=== PATIENT | female | born 1970 | race African-American/Black ===

== ENCOUNTER 2018-05-22 05:17 | Inpatient (IN) | payer MEDICAID ==
[~2018-05-22] VITALS: Ht 162.6 cm; Wt 112.5 kg
[2018-05-22 06:52] LABS: CHLORIDE 109 mEq/L (98-107)
[2018-05-22] MEDS ORDERED: FENTANYL CITRATE/PF 50MCG/ML 2ML VIAL ONE (07:09)
[2018-05-22] MEDS ORDERED: GLYCOPYRROLATE 0.2 MG/ML 2ML VIAL ONE ×2 (07:10→08:53)
[2018-05-22] MEDS ORDERED: PROPOFOL 200MG/20ML VIAL IV ONE ×2 (07:10→07:26)
[2018-05-22] MEDS ORDERED: NEOSTIGMINE METHYLSULFATE 1MG/ML 10 ML VIAL ONE (07:10)
[2018-05-22] MEDS ORDERED: ROCURONIUM BROMIDE 10MG/ML VIAL 5ML IV ONE (07:10)
[2018-05-22] MEDS ORDERED: MIDAZOLAM HCL 2 MG/2 ML VIAL ONE (07:10)
[2018-05-22] MEDS ORDERED: MORPHINE SULFATE 2 MG/ML CPJ (NOT FOR IM USE) IV PRN (07:15)
[2018-05-22] MEDS ORDERED: ONDANSETRON HCL 4MG/2ML INJ IV PRN ×2 (07:15→08:00)
[2018-05-22] MEDS ORDERED: CLONIDINE 0.1MG TABLET PO PRN (07:15)
[2018-05-22] MEDS ORDERED: DEXAMETHASONE 4MG/ML 1ML VIAL ONE ×2 (07:26→07:50)
[2018-05-22] MEDS ORDERED: HYDROMORPHONE HCL/PF 2MG/ML (OR) ONE (07:50)
[2018-05-22] MEDS ORDERED: MEPERIDINE HCL/PF 25MG/ML CPJ IV PRN (08:00)
[2018-05-22] MEDS ORDERED: LABETALOL HCL 5MG/ML VIAL 20ML IV PRN (08:00)
[2018-05-22] MEDS ORDERED: TOPI50TA PO (09:17)
[2018-05-22] MEDS ORDERED: PROP10TA10 PO (09:17)
[2018-05-22] MEDS ORDERED: TOP100 PO (09:17)
[2018-05-22] MEDS ORDERED: CHLO25TA2 PO (09:17)
[2018-05-22] MEDS ORDERED: ONDANSETRON INJ IV PRN (10:00)
[2018-05-22] MEDS ORDERED: MORPHINE PCA 50MG/50ML IV PRN (10:00)
[2018-05-22] MEDS: HYDROMORPHONE HCL/PF 2MG/ML CPJ IV PRN ×2 (10:00→10:08)
[2018-05-22] MEDS ORDERED: NALOXONE INJ IV PRN (10:00)
[2018-05-22] MEDS ORDERED: HYDROMORPHONE PCA 10MG/50ML IV PRN (11:15)
[2018-05-22] MEDS ORDERED: HYDRALAZINE 20MG/ML VIAL IV SCH (11:15)
[2018-05-22 12:00] VITALS: BP 153/88
[2018-05-22] MEDS ORDERED: CEFAZOLIN SODIUM 1000MG/VIAL IV SCH (14:00)
[2018-05-22 14:04] VITALS: BP 152/78
[2018-05-22] MEDS ORDERED: CEFAZOLIN 1000MG PREMIX 50 ML IV SCH (14:30)
[2018-05-22 16:00] VITALS: BP_SYST 125; BP_SYST 146; BP_DIAS 68; BP_DIAS 72
[2018-05-22] MEDS: DEXT 5%/LACTATED RINGERS 1,000 ML IV SCH (16:19)
[2018-05-22] MEDS: CEFAZOLIN 1000MG PREMIX 50 ML IV SCH (17:19)
[2018-05-22 20:00] VITALS: BP 136/77
[2018-05-23] VITALS: BP 165/93
[2018-05-23] MEDS: CEFAZOLIN 1000MG PREMIX 50 ML IV SCH ×2 (01:31→08:35)
[2018-05-23 04:00] VITALS: BP 167/89
[2018-05-23] MEDS: HYDROCODONE/APAP 7.5/325MG 1 TAB TABLET PO PRN (05:20)
[2018-05-23 06:34] LABS: CHLORIDE 107 mEq/L (98-107)
[2018-05-23 06:39] LABS: BASOPHILS % 0.2 % (0.0-2.0); HEMATOCRIT. 38.7 % (36.0-48.0); HEMOGLOBIN. 12.4 g/dL (12.0-16.0); LYMPHOCYTES % 10.6 % (20.0-50.0); MEAN CORPUSCULAR HEMOGLOBIN 27.8 pg (28.0-32.0); MEAN CORPUSCULAR VOLUME 86.5 fL (81.0-99.0); MEAN PLATELET VOLUME 9.2 fl (7.4-10.4); MONOCYTES % 5.4 % (2.0-8.0); NEUTROPHILS % 83.8 % (40.0-76.0); PLATELET 207 x1000/uL (130-400); RED BLOOD CELL COUNT 4.48 mill/uL (4.2-5.4); RED CELL DISTRIBUTION WIDTH 13.6 % (11.6-14.6)
[2018-05-23 08:00] VITALS: BP 159/84
[2018-05-23] MEDS: DEXT 5%/LACTATED RINGERS 1,000 ML IV SCH ×2 (10:29→21:09)
[2018-05-23 12:00] VITALS: BP 120/69
[2018-05-23] MEDS: TOPIRAMATE 25MG TABLET PO SCH (14:39)
[2018-05-23] MEDS: PROPRANOLOL HCL 10MG TABLET PO SCH (14:39)
[2018-05-23 16:00] VITALS: BP 126/64
[2018-05-23 20:37] VITALS: BP 140/87
[2018-05-23] MEDS: TOPIRAMATE 100MG TABLET PO SCH (21:03)
[2018-05-24] VITALS: BP 148/93
[2018-05-24 04:00] VITALS: BP 152/87
[2018-05-24 06:48] LABS: BASOPHILS % 0.4 % (0.0-2.0); EOSINOPHILS % 0.2 % (0.0-5.0); HEMATOCRIT. 40.2 % (36.0-48.0); HEMOGLOBIN. 13.2 g/dL (12.0-16.0); LYMPHOCYTES % 14.2 % (20.0-50.0); MEAN CORPUSCULAR HEMOGLOBIN 28.3 pg (28.0-32.0); MEAN CORPUSCULAR VOLUME 85.9 fL (81.0-99.0); MEAN PLATELET VOLUME 9.5 fl (7.4-10.4); MONOCYTES % 9.6 % (2.0-8.0); NEUTROPHILS % 75.6 % (40.0-76.0); PLATELET 204 x1000/uL (130-400); RED BLOOD CELL COUNT 4.68 mill/uL (4.2-5.4); RED CELL DISTRIBUTION WIDTH 13.4 % (11.6-14.6)
[2018-05-24 07:12] LABS: CHLORIDE 106 mEq/L (98-107)
[2018-05-24 08:00] VITALS: BP 159/86
[2018-05-24] MEDS: PROPRANOLOL HCL 10MG TABLET PO SCH (09:33)
[2018-05-24] MEDS: TOPIRAMATE 25MG TABLET PO SCH (09:33)
[2018-05-24] MEDS: DEXT 5%/LACTATED RINGERS 1,000 ML IV SCH ×2 (09:35→22:04)
[2018-05-24 12:00] VITALS: BP 158/88
[2018-05-24] MEDS: CYCLOBENZAPRINE 10MG TABLET PO PRN (14:10)
[2018-05-24 16:00] VITALS: BP 164/98
[2018-05-24] MEDS: CHLORTHALIDONE 25MG TABLET PO SCH (18:51)
[2018-05-24 20:00] VITALS: BP 151/89
[2018-05-24] MEDS: TOPIRAMATE 100MG TABLET PO SCH (22:02)
[2018-05-24] MEDS: HYDROCODONE/APAP 7.5/325MG 1 TAB TABLET PO PRN (22:03)
[2018-05-25] VITALS: BP 153/96
[2018-05-25 04:00] VITALS: BP 148/92
[2018-05-25 06:59] LABS: BASOPHILS % 0.8 % (0.0-2.0); EOSINOPHILS % 0.6 % (0.0-5.0); HEMATOCRIT. 42.9 % (36.0-48.0); HEMOGLOBIN. 14.1 g/dL (12.0-16.0); LYMPHOCYTES % 18.6 % (20.0-50.0); MEAN CORPUSCULAR HEMOGLOBIN 28.1 pg (28.0-32.0); MEAN CORPUSCULAR VOLUME 85.3 fL (81.0-99.0); MEAN PLATELET VOLUME 9.3 fl (7.4-10.4); MONOCYTES % 8.1 % (2.0-8.0); NEUTROPHILS % 71.9 % (40.0-76.0); PLATELET 216 x1000/uL (130-400); RED BLOOD CELL COUNT 5.03 mill/uL (4.2-5.4); RED CELL DISTRIBUTION WIDTH 13.6 % (11.6-14.6)
[2018-05-25 08:00] VITALS: BP 141/86
[2018-05-25 08:01] LABS: CHLORIDE 103 mEq/L (98-107)
[2018-05-25] MEDS: PROPRANOLOL HCL 10MG TABLET PO SCH (09:56)
[2018-05-25] MEDS: TOPIRAMATE 25MG TABLET PO SCH (09:56)
[2018-05-25] MEDS: CHLORTHALIDONE 25MG TABLET PO SCH (09:57)
[2018-05-25] MEDS: HYDROCODONE/APAP 7.5/325MG 1 TAB TABLET PO PRN ×2 (10:02→20:46)
[2018-05-25 12:00] VITALS: BP 113/83
[2018-05-25] MEDS: CYCLOBENZAPRINE 10MG TABLET PO PRN (12:05)
[2018-05-25] MEDS: DEXT 5%/LACTATED RINGERS 1,000 ML IV SCH (12:07)
[2018-05-25 16:00] VITALS: BP 119/71
[2018-05-25] MEDS ORDERED: POTASSIUM CHLORIDE 20MEQ TABLET SR PO NR (17:00)
[2018-05-25] MEDS: POLYETHYLENE GLYCOL 3350 (17GM) 1 DOSE PACK PO SCH (17:29)
[2018-05-25 20:00] VITALS: BP 131/57
[2018-05-25] MEDS: TOPIRAMATE 100MG TABLET PO SCH (20:46)
[2018-05-26] VITALS: BP 130/60
[2018-05-26 04:00] VITALS: BP 128/65
[2018-05-26 07:39] LABS: BASOPHILS % 0.4 % (0.0-2.0); HEMATOCRIT. 40.9 % (36.0-48.0); HEMOGLOBIN. 13.5 g/dL (12.0-16.0); LYMPHOCYTES % 21.5 % (20.0-50.0); MEAN CORPUSCULAR HEMOGLOBIN 28.5 pg (28.0-32.0); MEAN CORPUSCULAR VOLUME 86.4 fL (81.0-99.0); MEAN PLATELET VOLUME 9.4 fl (7.4-10.4); MONOCYTES % 9.4 % (2.0-8.0); NEUTROPHILS % 67.7 % (40.0-76.0); PLATELET 223 x1000/uL (130-400); RED BLOOD CELL COUNT 4.73 mill/uL (4.2-5.4); RED CELL DISTRIBUTION WIDTH 13.4 % (11.6-14.6)
[2018-05-26 08:00] VITALS: BP 111/64
[2018-05-26 08:02] LABS: CHLORIDE 103 mEq/L (98-107)
[2018-05-26] MEDS: POLYETHYLENE GLYCOL 3350 (17GM) 1 DOSE PACK PO SCH (09:00)
[2018-05-26] MEDS: CHLORTHALIDONE 25MG TABLET PO SCH (10:04)
[2018-05-26] MEDS: PROPRANOLOL HCL 10MG TABLET PO SCH (10:04)
[2018-05-26] MEDS: DEXT 5%/LACTATED RINGERS 1,000 ML IV SCH ×2 (10:09→18:45)
[2018-05-26] MEDS ORDERED: LACTULOSE 20G/30ML UDC PO NR (10:21)
[2018-05-26] MEDS: TOPIRAMATE 25MG TABLET PO SCH (10:28)
[2018-05-26 12:00] VITALS: BP 142/64
[2018-05-26 16:00] VITALS: BP 119/72
[2018-05-26] MEDS: CYCLOBENZAPRINE 10MG TABLET PO PRN (18:56)
[2018-05-26 20:00] VITALS: BP 149/89
[2018-05-26] MEDS: TOPIRAMATE 100MG TABLET PO SCH (20:56)
[2018-05-27] VITALS: BP 136/59
[2018-05-27 04:00] VITALS: BP 130/83
[2018-05-27] MEDS: CYCLOBENZAPRINE 10MG TABLET PO PRN (05:56)
[2018-05-27] MEDS: DEXT 5%/LACTATED RINGERS 1,000 ML IV SCH ×2 (06:12→15:38)
[2018-05-27 07:26] LABS: BASOPHILS % 0.4 % (0.0-2.0); EOSINOPHILS % 1.1 % (0.0-5.0); HEMATOCRIT. 42.5 % (36.0-48.0); LYMPHOCYTES % 20.1 % (20.0-50.0); MEAN CORPUSCULAR HEMOGLOBIN 28.1 pg (28.0-32.0); MEAN CORPUSCULAR VOLUME 85.4 fL (81.0-99.0); MEAN PLATELET VOLUME 9.4 fl (7.4-10.4); MONOCYTES % 10.3 % (2.0-8.0); NEUTROPHILS % 68.1 % (40.0-76.0); PLATELET 252 x1000/uL (130-400); RED BLOOD CELL COUNT 4.98 mill/uL (4.2-5.4); RED CELL DISTRIBUTION WIDTH 13.4 % (11.6-14.6)
[2018-05-27 08:00] VITALS: BP 149/97
[2018-05-27 08:28] LABS: CHLORIDE 100 mEq/L (98-107)
[2018-05-27] MEDS: POLYETHYLENE GLYCOL 3350 (17GM) 1 DOSE PACK PO SCH (09:53)
[2018-05-27] MEDS: TOPIRAMATE 25MG TABLET PO SCH (09:53)
[2018-05-27] MEDS: CHLORTHALIDONE 25MG TABLET PO SCH (09:54)
[2018-05-27] MEDS: PROPRANOLOL HCL 10MG TABLET PO SCH (09:54)
[2018-05-27 11:52] VITALS: BP 137/91
[2018-05-27 16:00] VITALS: BP 110/75
[2018-05-27] MEDS ORDERED: POTASSIUM CHLORIDE 20MEQ TABLET SR PO NR (17:15)
[2018-05-27 17:46] VITALS: BP 114/68
== END 2018-05-27 18:50 | disposition home or self-care (01) | DRG 310 ==
LOC: OR 05:17 → 6EST 05:18
PROVIDERS: ADMIT Neurological Surgery; ATTEND Neurological Surgery
PROC: 0SB20ZZ Excision of Lumbar Vertebral Disc, Open Approach (ICD-10-PCS; principal; 2018-05-22)
PROC: 01NB0ZZ Release Lumbar Nerve, Open Approach (ICD-10-PCS; 2018-05-22)
DX: M51.26 Other intervertebral disc displacement, lumbar region (principal); E87.8 Other disorders of electrolyte and fluid balance, not elsewhere classified; G43.909 Migraine, unspecified, not intractable, without status migrainosus; G89.29 Other chronic pain; M48.061 Spinal stenosis, lumbar region without neurogenic claudication; I10 Essential (primary) hypertension; M54.30 Sciatica, unspecified side; Z90.710 Acquired absence of both cervix and uterus
CPT/HCPCS: 36415; 72100; 76000; 80048; 82962; 83036; 86850; 86900; 88304; 88311; 95863; 95925; 95926; 95928; 95929; 97116; 97163; 97530; J0690; J1100; J1170; J2250; J2270; J2405; J2704; J2710; J3010; J3490; J7121

== ENCOUNTER 2018-12-09 05:31 | Inpatient (IN) | payer MEDICAID ==
[2018-12-09] VITALS (59 sets, daily range): BP systolic 95–184; BP diastolic 55–112
[~2018-12-09] VITALS: Ht 162.6 cm; Wt 104.3 kg
[~2018-12-09 05:31] MED LIST: AMLO5TAB88 PO; CHLO25TA2 PO; LORA10TA7 PO; NAPR220T66 PO; PROP10TA10 PO; TOPI50TA PO
[2018-12-09] MEDS ORDERED: BACITRACIN 50,000 UNITS/VIAL ONE (06:15)
[2018-12-09] MEDS ORDERED: LIDOCAINE HCL/EPINEPHRINE 1%-EPI 1:100,000 20 ML VIAL ONE (06:15)
[2018-12-09] MEDS: LACTATED RINGERS 1,000 ML IV SCH ×2 (06:15→11:16)
[2018-12-09] MEDS ORDERED: THROMBIN (BOVINE) 5000 UNITS/VIAL TOP ONE (06:15)
[2018-12-09] MEDS ORDERED: MIDAZOLAM HCL 2 MG/2 ML VIAL ONE (06:55)
[2018-12-09] MEDS ORDERED: PROPOFOL 200MG/20ML VIAL IV ONE (06:55)
[2018-12-09] MEDS ORDERED: FENTANYL CITRATE/PF 50MCG/ML 2ML VIAL ONE (06:55)
[2018-12-09] MEDS ORDERED: GLYCOPYRROLATE 0.2 MG/ML 2ML VIAL ONE ×3 (06:55→10:08)
[2018-12-09] MEDS ORDERED: NEOSTIGMINE METHYLSULFATE 1MG/ML 10 ML VIAL ONE (06:55)
[2018-12-09] MEDS ORDERED: DEXAMETHASONE 4MG/ML 1ML VIAL ONE (06:57)
[2018-12-09] MEDS ORDERED: ONDANSETRON HCL 4MG/2ML INJ ONE (06:57)
[2018-12-09] MEDS ORDERED: ROCURONIUM BROMIDE 10MG/ML VIAL 5ML IV ONE ×2 (06:59→08:10)
[2018-12-09] MEDS ORDERED: MORPHINE SULFATE 4 MG/ML CPJ (NOT FOR IM USE) IV PRN (07:15)
[2018-12-09] MEDS ORDERED: ONDANSETRON HCL 4MG/2ML INJ IV PRN ×2 (07:15→08:00)
[2018-12-09] MEDS ORDERED: HYDROCODONE/APAP 7.5/325MG 1 TAB TABLET PO PRN (07:15)
[2018-12-09] MEDS ORDERED: HYDROMORPHONE HCL/PF 2MG/ML (OR) ONE (07:43)
[2018-12-09] MEDS ORDERED: LABETALOL 5MG/ML SYR 20 MG/4 ML SYRINGE IV PRN (08:00)
[2018-12-09] MEDS ORDERED: MEPERIDINE HCL/PF 25MG/ML CPJ IV PRN (08:00)
[2018-12-09] MEDS ORDERED: HYDROMORPHONE HCL/PF 2MG/ML CPJ IV PRN (08:00)
[2018-12-09] MEDS ORDERED: DIPHENHYDRAMINE INJ IV PRN (10:30)
[2018-12-09] MEDS ORDERED: ONDANSETRON INJ IV PRN (10:30)
[2018-12-09] MEDS ORDERED: NALOXONE INJ IV PRN (10:30)
[2018-12-09] MEDS ORDERED: IPRATROPIUM/ALBUTEROL 0.5-3(2.5)MG/3ML NEB HHN PRN (11:00)
[2018-12-09] MEDS ORDERED: BISACODYL 5MG TABLET PO PRN (11:00)
[2018-12-09] MEDS ORDERED: BENZONATATE 100MG CAPSULE PO PRN (11:00)
[2018-12-09] MEDS: HYDROMORPHONE PCA 10MG/50ML IV PRN (11:03)
[2018-12-09] MEDS: NICARDIPINE 100 MG in SODIUM CHLORIDE 0.9% 60 ML IV PRN (11:04)
[2018-12-09] MEDS: DEXT 5%/LACTATED RINGERS 1,000 ML IV SCH ×3 (11:16→20:01)
[2018-12-09] MEDS ORDERED: CEFAZOLIN SODIUM 1000MG/VIAL IV SCH (14:00)
[2018-12-09] MEDS: CEFAZOLIN 1000MG PREMIX 50 ML IV SCH ×2 (14:21→21:45)
[2018-12-09 17:15] LABS: HEMATOCRIT. 40.3 % (36.0-48.0); HEMOGLOBIN. 12.9 g/dL (12.0-16.0); MEAN CORPUSCULAR HEMOGLOBIN 27.7 pg (28.0-32.0); MEAN CORPUSCULAR VOLUME 86.2 fL (81.0-99.0); MEAN PLATELET VOLUME 9.7 fl (7.4-10.4); PLATELET 196 x1000/uL (130-400); RED BLOOD CELL COUNT 4.67 mill/uL (4.2-5.4); RED CELL DISTRIBUTION WIDTH 14.3 % (11.6-14.6)
[2018-12-09 17:25] LABS: CHLORIDE 108 mEq/L (98-107)
[2018-12-09] MEDS: DOCUSATE SODIUM 100MG CAPSULE PO SCH (17:26)
[2018-12-09] MEDS: TOPIRAMATE 25MG TABLET PO SCH (17:26)
[2018-12-09 17:29] LABS: PARTIAL THROMBOPLASTIN TIME 39.9 sec (23.4-31.0); PROTHROMBIN TIME 10.2 sec (9.6-11.0)
[2018-12-09 20:05] LABS: PLATELET ESTIMATE NORMAL
[2018-12-09] MEDS: IPRATROPIUM/ALBUTEROL 0.5-3(2.5)MG/3ML NEB HHN SCH ×2 (21:03→21:06)
[2018-12-10] VITALS (97 sets, daily range): BP systolic 110–166; BP diastolic 36–114
[2018-12-10] MEDS: IPRATROPIUM/ALBUTEROL 0.5-3(2.5)MG/3ML NEB HHN SCH (02:19)
[2018-12-10] MEDS: DEXT 5%/LACTATED RINGERS 1,000 ML IV SCH ×2 (03:49→18:20)
[2018-12-10 05:28] LABS: HEMATOCRIT. 38.2 % (36.0-48.0); HEMOGLOBIN. 12.3 g/dL (12.0-16.0); MEAN CORPUSCULAR HEMOGLOBIN 27.9 pg (28.0-32.0); MEAN CORPUSCULAR VOLUME 86.7 fL (81.0-99.0); PLATELET 199 x1000/uL (130-400); RED CELL DISTRIBUTION WIDTH 14.2 % (11.6-14.6)
[2018-12-10 05:31] LABS: CHLORIDE 109 mEq/L (98-107)
[2018-12-10] MEDS: CEFAZOLIN 1000MG PREMIX 50 ML IV SCH ×3 (06:31→21:43)
[2018-12-10] MEDS: NICARDIPINE 100 MG in SODIUM CHLORIDE 0.9% 60 ML IV PRN ×2 (06:34→23:00)
[2018-12-10 08:55] LABS: CHLORIDE 109 mEq/L (98-107)
[2018-12-10] MEDS: TOPIRAMATE 25MG TABLET PO SCH (09:12)
[2018-12-10] MEDS: DOCUSATE SODIUM 100MG CAPSULE PO SCH ×2 (09:12→18:20)
[2018-12-10] MEDS: AMLODIPINE 5MG TABLET PO SCH (13:04)
[2018-12-10] MEDS: CHLORTHALIDONE 25MG TABLET PO SCH (13:04)
[2018-12-10 16:50] LABS: PLATELET ESTIMATE NORMAL
[2018-12-10] MEDS: HYDROMORPHONE PCA 10MG/50ML IV PRN (23:45)
[2018-12-11] VITALS (75 sets, daily range): BP systolic 96–158; BP diastolic 45–107
[2018-12-11] MEDS: CEFAZOLIN 1000MG PREMIX 50 ML IV SCH ×2 (05:19→13:38)
[2018-12-11 05:20] LABS: BASOPHILS % 0.3 % (0.0-2.0); HEMATOCRIT. 41.9 % (36.0-48.0); HEMOGLOBIN. 14.1 g/dL (12.0-16.0); LYMPHOCYTES % 11.5 % (20.0-50.0); MEAN CORPUSCULAR HEMOGLOBIN 28.6 pg (28.0-32.0); MEAN PLATELET VOLUME 9.9 fl (7.4-10.4); MONOCYTES % 7.7 % (2.0-8.0); NEUTROPHILS % 80.5 % (40.0-76.0); PLATELET 220 x1000/uL (130-400); RED BLOOD CELL COUNT 4.93 mill/uL (4.2-5.4); RED CELL DISTRIBUTION WIDTH 14.1 % (11.6-14.6)
[2018-12-11 05:41] LABS: CHLORIDE 100 mEq/L (98-107)
[2018-12-11] MEDS: TOPIRAMATE 25MG TABLET PO SCH (08:34)
[2018-12-11] MEDS: CHLORTHALIDONE 25MG TABLET PO SCH (08:34)
[2018-12-11] MEDS: DOCUSATE SODIUM 100MG CAPSULE PO SCH ×2 (08:34→16:53)
[2018-12-11] MEDS: AMLODIPINE 5MG TABLET PO SCH (08:34)
[2018-12-11] MEDS: FAMOTIDINE 20MG TABLET PO SCH (20:46)
[2018-12-12] VITALS: BP 105/70
[2018-12-12 04:00] VITALS: BP 110/70
[2018-12-12] MEDS ORDERED: DEXTROSE 50% WATER 50ML SYRINGE IV PRN (07:30)
[2018-12-12] MEDS: BLOOD SUGAR DIAGNOSTIC STRIP TEST SCH ×4 (07:39→20:38)
[2018-12-12 07:47] LABS: CHLORIDE 100 mEq/L (98-107)
[2018-12-12] MEDS: INSULIN LISPRO 100 UNITS/ML SUBCUT SCH ×4 (07:50→20:42)
[2018-12-12 07:53] LABS: BASOPHILS % 0.6 % (0.0-2.0); EOSINOPHILS % 0.4 % (0.0-5.0); LYMPHOCYTES % 22.8 % (20.0-50.0); MEAN CORPUSCULAR HEMOGLOBIN 28.6 pg (28.0-32.0); MEAN CORPUSCULAR VOLUME 85.6 fL (81.0-99.0); MEAN PLATELET VOLUME 9.6 fl (7.4-10.4); MONOCYTES % 9.4 % (2.0-8.0); NEUTROPHILS % 66.8 % (40.0-76.0); PLATELET 235 x1000/uL (130-400)
[2018-12-12 08:00] VITALS: BP 108/63
[2018-12-12] MEDS: AMLODIPINE 5MG TABLET PO SCH (08:50)
[2018-12-12] MEDS: TOPIRAMATE 25MG TABLET PO SCH (08:50)
[2018-12-12] MEDS: DOCUSATE SODIUM 100MG CAPSULE PO SCH ×2 (08:50→17:58)
[2018-12-12] MEDS ORDERED: POTASSIUM CHLORIDE 20MEQ/PACKET PO NR (09:15)
[2018-12-12] MEDS: CHLORTHALIDONE 25MG TABLET PO SCH (10:43)
[2018-12-12 12:00] VITALS: BP 139/94
[2018-12-12] MEDS ORDERED: LACTULOSE 20G/30ML UDC PO NR (15:30)
[2018-12-12 16:00] VITALS: BP 118/65
[2018-12-12 20:00] VITALS: BP 123/80
[2018-12-12] MEDS: FAMOTIDINE 20MG TABLET PO SCH (20:31)
[2018-12-13] VITALS: BP 111/65
[2018-12-13 04:00] VITALS: BP 124/69
[2018-12-13] MEDS: BLOOD SUGAR DIAGNOSTIC STRIP TEST SCH ×2 (06:45→11:43)
[2018-12-13 07:10] LABS: BASOPHILS % 0.6 % (0.0-2.0); EOSINOPHILS % 0.6 % (0.0-5.0); HEMATOCRIT. 41.2 % (36.0-48.0); HEMOGLOBIN. 13.8 g/dL (12.0-16.0); LYMPHOCYTES % 16.7 % (20.0-50.0); MEAN CORPUSCULAR HEMOGLOBIN 28.5 pg (28.0-32.0); MEAN CORPUSCULAR VOLUME 84.9 fL (81.0-99.0); MEAN PLATELET VOLUME 9.9 fl (7.4-10.4); MONOCYTES % 8.5 % (2.0-8.0); NEUTROPHILS % 73.6 % (40.0-76.0); PLATELET 252 x1000/uL (130-400); RED BLOOD CELL COUNT 4.85 mill/uL (4.2-5.4); RED CELL DISTRIBUTION WIDTH 13.5 % (11.6-14.6)
[2018-12-13 07:50] LABS: CHLORIDE 99 mEq/L (98-107)
[2018-12-13] MEDS: INSULIN LISPRO 100 UNITS/ML SUBCUT SCH ×2 (07:50→11:50)
[2018-12-13 08:00] VITALS: BP 123/63
[2018-12-13] MEDS: TOPIRAMATE 25MG TABLET PO SCH (09:02)
[2018-12-13] MEDS: CHLORTHALIDONE 25MG TABLET PO SCH (09:02)
[2018-12-13] MEDS: DOCUSATE SODIUM 100MG CAPSULE PO SCH (09:03)
[2018-12-13] MEDS: AMLODIPINE 5MG TABLET PO SCH (09:03)
[2018-12-13] MEDS ORDERED: POTASSIUM CHLORIDE 20MEQ/PACKET PO NR (10:00)
[2018-12-13] MEDS ORDERED: HYDR-4001 PO (11:51)
[2018-12-13 11:57] VITALS: BP 127/63
== END 2018-12-13 15:12 | disposition home health service (06) | DRG 304 ==
LOC: OR 05:31 → MICUNO 05:32 → 6EST 12-11 17:30
PROVIDERS: ADMIT Neurological Surgery; ATTEND Neurological Surgery
PROC: 0SG0071 Fusion of Lumbar Vertebral Joint with Autologous Tissue Substitute, Posterior Approach, Posterior Column, Open Approach (ICD-10-PCS; principal; 2018-12-09)
PROC: 01NB0ZZ Release Lumbar Nerve, Open Approach (ICD-10-PCS; 2018-12-09)
PROC: 4A11X4G Monitoring of Peripheral Nervous Electrical Activity, Intraoperative, External Approach (ICD-10-PCS; 2018-12-09)
PROC: 8E0 Other Procedures, Physiological Systems and Anatomical Regions, Other Procedures (ICD-10-PCS; 2018-12-09)
DX: M47.16 Other spondylosis with myelopathy, lumbar region (principal); G82.50 Quadriplegia, unspecified; M51.06 Intervertebral disc disorders with myelopathy, lumbar region; E66.9 Obesity, unspecified; I10 Essential (primary) hypertension; G82.20 Paraplegia, unspecified; F17.210 Nicotine dependence, cigarettes, uncomplicated; M54.30 Sciatica, unspecified side; G43.909 Migraine, unspecified, not intractable, without status migrainosus; Z68.39 Body mass index [BMI] 39.0-39.9, adult; Z90.710 Acquired absence of both cervix and uterus
CPT/HCPCS: 36415; 72100; 76000; 80048; 82962; 86850; 86900; 88304; 88311; 95863; 95925; 95926; 95928; 95929; 97116; 97163; 97166; 97530; 97535; C1713; J0690; J1100; J1170; J1200; J1815; J2250; J2405; J2704; J2710; J3010; J3490; J7040; J7050; J7121; J7620

== ENCOUNTER → 2021-05-23 | Outpatient (CLI) | payer MEDICAID ==
[~2021-05-23] MED LIST changes: +GENTAMICIN SULF 40MG/ML 2ML VIAL ONE; +HYDR-4001 PO; +LIDOCAINE HCL/EPINEPHRINE 1%-EPI 1:100,000 30 ML VIAL INFIL ONE; -NAPR220T66 PO; -PROP10TA10 PO; +THROMBIN (BOVINE) 5000 UNITS/VIAL TOP ONE
== END | disposition home or self-care (01) ==
LOC: LAB 11:17
PROVIDERS: ATTEND Neurological Surgery
DX: Z01.812 Encounter for preprocedural laboratory examination (principal); Z20.822 Contact with and (suspected) exposure to COVID-19
CPT/HCPCS: 87426